=== PATIENT | male | born 1960 | race Caucasian/White ===

== ENCOUNTER 2017-05-23 17:54 | Emergency (ER) | payer OTHER ==
[~2017-05-23] VITALS: Ht 180.3 cm; Wt 113.4 kg
[~2017-05-23 17:54] MED LIST: ACETAMINOPHEN-1 EAC1 PO; ASPIRIN EC81 M1 PO; BENAZEPRIL HCL40 MG PO; CARISOPRODOL 3350 MG PO; DILANTIN 100 M100 MG; DILANTIN100 MG PO; LOTENSIN40 MG; LOTENSIN40 MG PO; NORCO 5-325 TA1 EACH PO; VALIUM5 MG PO; VICODIN 5-3001 EACH PO
[2017-05-23 18:05] VITALS: BP 160/82
[2017-05-23] MEDS ORDERED: BENAZEPRIL HCL40 MG PO (18:26)
== END 2017-05-23 18:29 | disposition home or self-care (01) ==
LOC: M.ERS 17:54
DX: Z76.0 Encounter for issue of repeat prescription (principal); I10 Essential (primary) hypertension; Z88.1 Allergy status to other antibiotic agents

== ENCOUNTER 2017-05-28 18:50 | Emergency (ER) | payer OTHER ==
[~2017-05-28] VITALS: Ht 154.9 cm; Wt 113.4 kg
[2017-05-28 18:56] VITALS: BP 182/80
[2017-05-28] MEDS ORDERED: FLEXERIL PO (19:15)
== END 2017-05-28 19:29 | disposition home or self-care (01) ==
LOC: M.ERS 18:50
DX: M54.5 Low back pain (principal); G89.29 Other chronic pain; I10 Essential (primary) hypertension